=== PATIENT | female | born 1940 | race Caucasian/White ===

== ENCOUNTER 2017-07-31 09:53 | Outpatient (CLI) | payer OTHER, MEDICARE | END 2017-07-31 19:41 | disposition home or self-care (01) | LOC: SMA 09:53 | PROVIDERS: ATTEND Obstetrics & Gynecology Gynecology | DX: Z12.31 Encounter for screening mammogram for malignant neoplasm of breast (principal) | CPT/HCPCS: G0202 ==

== ENCOUNTER 2018-08-14 08:59 | Outpatient (CLI) | payer OTHER, MEDICARE | END 2018-08-14 21:34 | disposition home or self-care (01) | LOC: SMA 08:59 | PROVIDERS: ATTEND Obstetrics & Gynecology Gynecology | DX: Z12.31 Encounter for screening mammogram for malignant neoplasm of breast (principal); R92.1 Mammographic calcification found on diagnostic imaging of breast | CPT/HCPCS: 77067 ==

== ENCOUNTER 2019-08-17 08:41 | Outpatient (CLI) | payer OTHER, MEDICARE | END 2019-08-17 20:34 | disposition home or self-care (01) | LOC: SMA 08:41 | PROVIDERS: ATTEND Obstetrics & Gynecology Gynecology | DX: Z12.31 Encounter for screening mammogram for malignant neoplasm of breast (principal) | CPT/HCPCS: 77067 ==

== ENCOUNTER 2020-08-18 12:40 | Outpatient (CLI) | payer OTHER, MEDICARE | END 2020-08-18 20:39 | disposition home or self-care (01) | LOC: SMA 12:40 | PROVIDERS: ATTEND Obstetrics & Gynecology Gynecology | DX: Z12.31 Encounter for screening mammogram for malignant neoplasm of breast (principal) | CPT/HCPCS: 77067 ==

== ENCOUNTER 2021-08-21 09:44 | Outpatient (CLI) | payer OTHER, MEDICARE | END 2021-08-21 20:09 | disposition home or self-care (01) | LOC: SMA 09:44 | PROVIDERS: ATTEND Obstetrics & Gynecology Gynecology | DX: Z12.31 Encounter for screening mammogram for malignant neoplasm of breast (principal) | CPT/HCPCS: 77067 ==

== ENCOUNTER 2022-09-06 11:07 | Outpatient (CLI) | payer OTHER, MEDICARE | END 2022-09-06 18:53 | disposition home or self-care (01) | LOC: SMA 11:07 | PROVIDERS: ATTEND Obstetrics & Gynecology Gynecology | DX: Z12.31 Encounter for screening mammogram for malignant neoplasm of breast (principal) | CPT/HCPCS: 77067 ==

== ENCOUNTER 2023-09-20 08:24 | Outpatient (CLI) | payer OTHER, MEDICARE | END 2023-09-20 17:34 | disposition home or self-care (01) | LOC: SMA 08:24 | PROVIDERS: ATTEND Obstetrics & Gynecology Gynecology | DX: Z12.31 Encounter for screening mammogram for malignant neoplasm of breast (principal) | CPT/HCPCS: 77067 ==